=== PATIENT | female | born 1975 | race Caucasian/White ===

== ENCOUNTER 2021-05-16 18:45 | Emergency (ER) | payer OTHER, BC, SELFPAY ==
--- NOTE | ~2021-05-16 | XR_ITS ---
EXAM: XR foot RT min 3V HISTORY: KNI. LATERAL ACUTE DORSAL PAIN X 3 DAYS. COMPARISON: None available FINDINGS: Normal mineralization. No fracture or dislocation. No lytic or blastic lesion. Plantar and Achilles enthesopathy.. No erosion or periosteal change. Soft tissues within normal limits. IMPRESSION: No acute osseous finding in the right foot. Reviewed, dictated and finalized at location K.
[2021-05-16 19:06] VITALS: BP 131/89; PULSE 70; RESP 18; TEMP 36.7; O2SAT 98
--- NOTE | 2021-05-16 19:42 | ED.EXTPRO ---
HPI - Extremity Problem General Chief complaint: Extremity Problem,Nontraumatic Stated complaint: Right Foot Pain Time Seen by Provider: 05/16/21 19:42 Source: patient, RN notes reviewed and old records reviewed Mode of arrival: ambulatory Limitations: no limitations History of Present Illness HPI Narrative: 46-year-old female who presents to [facility] with complaints of 3-day duration of right lateral dorsal pain with no known injury. Patient reports that today pain is sharp and has been increasing with activity. No obvious deformity or swelling noted patient has been taking some ibuprofen for her discomfort.Patient states that she is on her feet alot at work and pain is really getting bad to her right foot making it different to work. Patient reports that pain increases with weight bearing and walking. Onset (ago): day(s) (3) Pain Consistency: other (Increased in intensity today) Location: right and lower extremity (Foot) Related Data Home Medications Medication Instructions Recorded Confirmed alprazolam [Xanax] 0.25 mg PO DAILY 05/16/21 05/16/21 buspirone [BuSpar] 10 mg PO TID 05/16/21 05/16/21 Allergies Allergy/AdvReac Type Severity Reaction Status Date / Time Penicillins Allergy Redness of Verified 05/16/21 19:13 Skin Review of Systems Review of Systems: CONSTITUTIONAL: Denies fever, chills, or sweats. EYES: Denies visual changes, redness, or discharge. ENT: Denies rhinorrhea, congestion, sore throat, or otalgia. CARDIOVASCULAR: Denies chest pain, palpitations, or edema. RESPIRATORY: Denies cough or dyspnea. GASTROINTESTINAL: Denies abdominal pain, nausea, vomiting, or diarrhea. GENITOURINARY: Denies dysuria or hematuria. SKIN: Denies rash or itching. MUSCULOSKELETAL: Denies back pain, right foot pain, or myalgia. NEUROLOGIC: Denies headache, numbness, or weakness. PSYCHIATRIC: Denies anxiety or depression. All systems reviewed & are unremarkable except as noted in HPI and below PMFSH Past Medical History Medical History (Updated 05/17/21 @ 14:30 by Angie Ruggiero NP) Anxiety Stress fracture of foot Social History Social History (Updated 05/17/21 @ 14:28 by Angie Ruggiero NP) Smoking status: Never smoker Exam Narrative: GENERAL: Well-appearing, well-nourished, and in no acute distress. HEAD: Normocephalic, atraumatic. EYES: PERRLA and EOMI. ENT: Nares clear, no rhinorrhea or epistaxis. Mucous membranes moist.TM's normal, throat pink with no lesions exudates, or tonsil enlargement. NECK: Supple.no lymphadenopathy CHEST: Clear to auscultation. No respiratory distress.SAO2 98% on room air HEART: Regular rate and rhythm. No murmur heard. Normal peripheral pulses. ABDOMEN: Soft, nontender, nondistended, normal active bowel sounds. EXTREMITIES: Normal range of motion. No edema.pain to bilateral feet with greater intensity to right foot for the past 3-4 days.pain located dorsal lateral region with increase pain with weight bearing and ambulation.Circulation sensation and mobility intact, no acute swelling noted SKIN: Warm, dry, no rash. NEURO: No focal deficits. Alert and oriented x3. Course Course Level of Care: Express Care Visit Vital Signs Vital signs: Vital Signs Temperature 36.7 C 05/16/21 19:06 Pulse Rate 70 05/16/21 19:06 Respiratory Rate 18 05/16/21 19:06 Blood Pressure 131/89 05/16/21 19:06 Pulse Oximetry 98 05/16/21 19:06 Temperature 36.7 C 05/16/21 19:06 Pulse Rate 70 05/16/21 19:06 Respiratory Rate 18 05/16/21 19:06 Blood Pressure 131/89 05/16/21 19:06 Pulse Oximetry 98 05/16/21 19:06 MDM - Extremity (Nontraumatic) Differential Diagnosis Differential diagnosis: Likely gout, cellulitis and other (bone spurs,plantar fasciitis) Medical Records Attestation: I reviewed the patient's medical records. Imaging Data Attestation: I personally reviewed and interpreted this imaging study as follows: My impression: no fracture noted small p
== END 2021-05-16 20:40 | disposition home or self-care (01) ==
PROVIDERS: Emergency Provider Registered Nurse
DX: M79.671 Pain in right foot (principal); F41.9 Anxiety disorder, unspecified
CPT/HCPCS: 73630; 99213; G0463